=== PATIENT | female | born 1950 | race Caucasian/White ===

== ENCOUNTER → 2018-06-29 | Outpatient (CLI) | payer BC ==
[~2018-06-29] MED LIST: LEVOTHROID0.125 MG PO; LISINOPRIL AND1 TAB PO; NORCO 325 MG-51 TAB PO
== END ==
LOC: MC.RAD 10:35
DX: Z12.31 Encounter for screening mammogram for malignant neoplasm of breast (principal)

== ENCOUNTER → 2019-08-15 | Outpatient (CLI) | payer MEDICARE, BC | LOC: MC.RAD 10:17 | DX: Z12.31 Encounter for screening mammogram for malignant neoplasm of breast (principal) ==

== ENCOUNTER → 2020-08-19 | Outpatient (CLI) | payer MEDICARE, BC | LOC: MC.RAD 10:45 | DX: Z12.31 Encounter for screening mammogram for malignant neoplasm of breast (principal) ==

== ENCOUNTER → 2021-09-16 | Outpatient (CLI) | payer MEDICARE, BC | LOC: MC.RAD 09:18 | DX: Z12.31 Encounter for screening mammogram for malignant neoplasm of breast (principal) ==

== ENCOUNTER → 2022-10-23 | Outpatient (CLI) | payer MEDICARE, BC | LOC: MC.RAD 06:57 | DX: Z12.31 Encounter for screening mammogram for malignant neoplasm of breast (principal) ==